=== PATIENT | male | born 1975 | race Two or more races ===

== ENCOUNTER 2023-11-04 02:13 | Emergency (ER) | payer OTHER | END 2023-11-04 04:14 | disposition home or self-care (01) | LOC: MW.ED 02:13 | DX: K64.4 Residual hemorrhoidal skin tags (principal) | CPT/HCPCS: 99282 ==

== ENCOUNTER 2024-03-16 19:20 | Emergency (ER) | payer OTHER ==
[2024-03-16 19:50] LABS: APPEARANCE,URINE CLEAR; BILIRUBIN,URINE NEGATIVE (NEGATIVE); COLOR,URINE YELLOW; GLUCOSE,URINE NEGATIVE (NEGATIVE); KETONES,URINE NEGATIVE (NEGATIVE); LEUKOCYTE ESTERASE,URINE NEGATIVE (NEGATIVE); NITRITE,URINE NEGATIVE (NEGATIVE); OCCULT BLOOD,URINE NEGATIVE (NEGATIVE); PROTEIN,URINE NEGATIVE (NEGATIVE); UROBILINOGEN,URINE 0.2 EU/dL (<2.0)
[2024-03-16 21:19] LABS: C. TRACHOMATIS BY PCR NOT DETECTED; N. GONORRHOEAE BY PCR NOT DETECTED
== END 2024-03-16 22:30 | disposition home or self-care (01) ==
LOC: MW.ED 19:20
DX: N34.2 Other urethritis (principal); N48.29 Other inflammatory disorders of penis
CPT/HCPCS: 81003; 87491; 87591; 99283; 99284